=== PATIENT | female | born 1990 | race Caucasian/White ===

== ENCOUNTER 2020-04-25 11:42 | Outpatient (CLI) | payer BC ==
[2020-04-25 12:37] LABS: Basophils % (A) 1 %; Eosinophils # (A) 0.2 k/uL (0-0.7); Eosinophils % (A) 2 %; HCT 36.6 % (34.0-46.0); HGB 12.6 gm/dL (11.4-16.0); Lymphocytes # (A) 1.2 k/uL (1.0-4.8); Lymphocytes % (A) 13 %; MCH 30.1 pg (25.0-35.0); MCHC 34.6 g/dL (31.0-37.0); MCV 86.9 fL (80.0-100.0); Mean Platelet Volume 9.6; Monocytes # (A) 0.7 k/uL (0-1.0); Monocytes % (A) 8 %; Neutrophils # (A) 7.2 k/uL (1.3-7.7); Neutrophils % (A) 76 %; Platelet Count 157 k/uL (150-450); RBC 4.21 m/uL (3.80-5.40); RDW 13.9 % (11.5-15.5); WBC 9.4 k/uL (3.8-10.6)
[2020-04-25 12:45] LABS: ALT 19 U/L (4-34); AST 32 U/L (14-36); African American GFR (CKD) >90 (>60 ml/min/1.73 sqM); Blood Urea Nitrogen 3 mg/dL (7-17); LDH 456 U/L (313-618); Non-African American GFR(CKD) >90 (>60 ml/min/1.73 sqM)
[2020-04-25 12:46] LABS: Creatinine,Urine Random 23.9 mg/dL; Protein/Creatinine Ratio,Urine 0.628
[2020-04-25 12:48] LABS: Appearance,Urine Clear (Clear); Bacteria,Urine Moderate /hpf; Bilirubin,Urine Negative (Negative); Blood,Urine Negative (Negative); Color,Urine Light Yellow; Glucose,Urine (UA) Negative (Negative); Ketones,Urine Negative (Negative); Leukocyte Esterase,Urine Moderate (Negative); Nitrite,Urine Negative (Negative); Protein,Urine Negative (Negative); Specific Gravity,Urine 1.005 (1.001-1.035); Squamous Epithelial Cell,Urine 6 /hpf (0-4); Urobilinogen,Urine <2.0 mg/dL (<2.0); WBC,Urine 4 /hpf (0-5)
--- NOTE | 2020-04-26 06:30 | P.MSEPDOC ---
Presenting Problems - Arrival Data Date of Arrival on Unit: 04/25/20 Time of Arrival on Unit: 11:42 Mode of Transport: Ambulatory - Complaint OB-Reason for Admission/Chief Complaint: PIH Comment: pt sent over from the office for preeclampsia workup by Dr. Traylor Medical History - Information : 2 Para: 1 Term: 1 : 0 Abortions: Spontaneous or Elective: 0 Number of Living Children: 1 - Gestational Age Gestational Age by UTE (wks/days): 36 Weeks and 2 Days Review of Systems - Review of Systems Constitutional: No problems Breast: No problems ENT: No problems Cardiovascular: No problems Respiratory: No problems Gastrointestinal: No problems Genitourinary: No problems Musculoskeletal: No problems Neurological: No problems Skin: No problems Physician Notification (Pre) - Physician Notified Physician Notified Date: 04/25/20 New Order Received: Yes - Notification Comment Comment: Dr. Traylor notified of results of labs, orders to discharge pt home and have her do a 24 hour urine, and drop off container at outpatient lab Disposition - Disposition OB Disposition: Triage, Discharge to home, Written follow up instructions reviewed Discharge Date: 04/25/20 Discharge Time: 13:35 I agree with the RN Medical Screening Exam: Yes Case reviewed; plan agreed upon as documented in EMR&OBIX.: Yes Diagnosis: GESTATIONAL HTN W/O SIGNIFICANT PROTEINURIA, THIRD TRIMESTER (Patient was sent over from the office for 1 isolated elevated diastolic blood pressure that could not be reproduced. Patient's blood pressures here all were normal. Preeclampsia labs were normal. She did have an elevated protein to creatinine ratio therefore she was sent home for a 24-hour urine. Patient was given strict instructions return should any signs or symptoms of preeclampsia. She also follow-up short-term with me on for repeat blood pressure check and nonstress test. This time there is no evidence of maternal compromise or indications for delivery.)
== END 2020-04-25 13:35 | disposition home or self-care (01) ==
LOC: FBPOP 11:42
PROVIDERS: ATTEND Obstetrics & Gynecology
DX: O13.3 Gestational [pregnancy-induced] hypertension without significant proteinuria, third trimester (principal); Z3A.36 36 weeks gestation of pregnancy
CPT/HCPCS: 59025; 81001; 82565; 82570; 83615; 84156; 84450; 84460; 84520; 84550; 85025

== ENCOUNTER 2020-05-13 11:05 | Inpatient (IN) | payer BC ==
[2020-05-13 12:11] LABS: Basophils % (A) 0 %; Eosinophils # (A) 0.1 k/uL (0-0.7); Eosinophils % (A) 1 %; HCT 39.6 % (34.0-46.0); HGB 13.7 gm/dL (11.4-16.0); Lymphocytes # (A) 1.3 k/uL (1.0-4.8); Lymphocytes % (A) 13 %; MCH 30.4 pg (25.0-35.0); MCHC 34.7 g/dL (31.0-37.0); MCV 87.8 fL (80.0-100.0); Mean Platelet Volume 9.9; Monocytes # (A) 0.7 k/uL (0-1.0); Monocytes % (A) 7 %; Neutrophils # (A) 7.9 k/uL (1.3-7.7); Neutrophils % (A) 77 %; Platelet Count 158 k/uL (150-450); RBC 4.51 m/uL (3.80-5.40); WBC 10.2 k/uL (3.8-10.6)
[2020-05-13 12:16] LABS: Appearance,Urine Cloudy (Clear); Bacteria,Urine Many /hpf; Bilirubin,Urine Negative (Negative); Blood,Urine Negative (Negative); Color,Urine Light Yellow; Glucose,Urine (UA) Negative (Negative); Ketones,Urine Negative (Negative); Leukocyte Esterase,Urine Large (Negative); Nitrite,Urine Negative (Negative); Protein,Urine Negative (Negative); RBC,Urine 1 /hpf (0-5); Specific Gravity,Urine 1.004 (1.001-1.035); Squamous Epithelial Cell,Urine 9 /hpf (0-4); Urobilinogen,Urine <2.0 mg/dL (<2.0); WBC,Urine 40 /hpf (0-5)
[2020-05-13 12:21] LABS: ALT 19 U/L (4-34); AST 46 U/L (14-36); African American GFR (CKD) >90 (>60 ml/min/1.73 sqM); Blood Urea Nitrogen 7 mg/dL (7-17); LDH 642 U/L (313-618); Non-African American GFR(CKD) >90 (>60 ml/min/1.73 sqM); Uric Acid 4.2 mg/dL (3.7-7.4)
[2020-05-13 12:32] LABS: Creatinine,Urine Random 19.4 mg/dL; Protein/Creatinine Ratio,Urine 0.773
[2020-05-13] MEDS: LACTATED RINGERS 1,000 ML IV SCH ×2 (12:45→15:30)
[2020-05-13] MEDS ORDERED: LIDOCAINE 0.5% (PF) 5 MG/ML (50 ML SDV) SQ PRN (12:46)
[2020-05-13] MEDS ORDERED: CARBOPROST TROMETHAMINE 250 MCG/ML 1 ML AMP IM PRN (12:46)
[2020-05-13] MEDS ORDERED: TERBUTALINE 1 MG/ML VIAL SQ PRN (12:46)
[2020-05-13] MEDS ORDERED: OXYTOCIN 10 UNIT/ML 1 ML VIAL IM PRN (12:46)
[2020-05-13] MEDS ORDERED: METHYLERGONOVINE 0.2 MG/ML 1 ML AMP IM PRN (12:46)
[2020-05-13] MEDS ORDERED: OXYTOCIN 30 UNITS/500 ML NS 30 UNIT in SALINE 1 500ML.BAG IV SCH ×2 (13:00→19:07)
--- NOTE | 2020-05-13 13:12 | P.HPOB ---
History of Present Illness H&P Date: 05/13/20 Chief Complaint: Elevated blood pressure This patient is a pleasant 29-year-old 2 para 1 female estimated date of confinement 05/21/2020 estimated gestational age 38-6/7 weeks who presented to my office this morning for an OB visit and was found have an elevated blood pressure 136/100. Patient had a similar episode on April 25 however evaluation that time did not show a persistent elevation and lab work and 24-hour urine was normal. Patient's been seen twice a week since that time and blood pressures have remained normal. Patient has had persistent edema since approximately 35 weeks. Patient now was sent to labor and delivery for evaluation has had persistent blood pressure elevations greater than 140/90 and laboratory evaluation shows elevated AST. Platelets are normal. Patient denies headache but does have persistent lower extremity swelling. Plan initially was to proceed with induction Saturday but will now proceed with delivery because it is evident she's developed preeclampsia. care otherwise is been uncomplicated. Review of Systems Genitourinary: Reports Menstruation: Reports amenorrhea Past Medical History Additional Past Medical History / Comment(s): hx of gest diabetes with 1st History of Any Multi-Drug Resistant Organisms: None Reported Past Surgical History: Adenoidectomy, Tonsillectomy Past Anesthesia/Blood Transfusion Reactions: No Reported Reaction Past Psychological History: No Psychological Hx Reported Smoking Status: Never smoker Past Alcohol Use History: None Reported Past Drug Use History: None Reported - Past Family History Father Family Medical History: Cancer Additional Family Medical History / Comment(s): lung cancer, maternal grandfather had diabetes and HTN, from [place] Medications and Allergies Home Medications Medication Instructions Recorded Confirmed Type Pnv No.95/Ferrous Fum/Folic AC 1 tab PO DAILY 04/25/20 05/13/20 History [ Multivitamin Tablet] Allergies Allergy/AdvReac Type Severity Reaction Status Date / Time amoxicillin Allergy Rash/Hives Verified 05/13/20 11:17 Exam Vital Signs Temp Pulse Resp BP Pulse Ox 05/13/20 12:21 97.4 F L 82 18 141/95 100 05/13/20 11:39 97.4 F L 82 18 141/95 100 Intake and Output 05/12/20 05/13/20 05/13/20 22:59 06:59 14:59 Other: Weight 77.111 kg - OBG Physical Exam Abdomen: bowel sounds normal, no diffuse tenderness, no bruit present, no guarding noted, no hepatomegaly, no splenomegaly, no mass Vulva: both: normal Cervix: no lesion (Cervix is 2-350% effaced -2 station), no discharge Uterus: enlarged (Fundal height is 40 cm) Results blood work shows she is A-, rubella nonimmune, RPR nonreactive, hepatit is B negative, HIV is nonreactive, group B strep was positive, Glucola was 117, RhoGAM was given on March 01. Ultrasound done at 35 weeks showed the baby to be at the 67th percentile. Result Diagrams: 05/13/20 11:30 05/13/20 11:30 Abnormal Lab Results - Last 24 Hours (Table) 05/13/20 05/13/20 05/13/20 Range/Units 11:30 11:30 11:30 Neutrophils # 7.9 H (1.3-7.7) k/uL Creatinine 0.46 L (0.52-1.04) mg/dL AST 46 H (14-36) U/L Lactate Dehydrogenase 642 H (313-618) U/L Urine Appearance Cloudy H (Clear) Ur Leukocyte Esterase Large H (Negative) Urine WBC 40 H (0-5) /hpf Ur Squamous Epith Cells 9 H (0-4) /hpf Urine Bacteria Many H (None) /hpf Assessment and Plan Assessment: This is a pleasant 29-year-old 2 para 1 female 38-6/7 weeks gestation with elevated blood pressures and laboratory evaluation consistent with p reeclampsia. I recommended patient proceed with induction of labor and delivery at this time. Plan is antibiotic prophylaxis due to positive group B strep and Pitocin induction of labor. If blood pressures warrant then we will treat with IV labetalol. (1) 38 weeks gestation of Current Visit: Yes Status: Acute Code(s): Z3A.38 - 38 WEEKS GESTATION OF SNOMED Code(s): 30730482 (2) Preeclampsia Current Visit: Yes Status: Acute Code(s): O14.90 - UNSPECIFIED PRE-E CLAMPSIA, UNSPECIFIED TRIMESTER SNOMED Code(s): 657243563 (3) Rh negative status during Current Visit: Yes Status: Acute Code(s): O26.899 - OTH RELATED CONDITIONS, UNSPECIFIED TRIMESTER; Z67.91 - UNSPECIFIED BLOOD TYPE, RH NEGATIVE SNOMED Code(s): 629038565
[2020-05-13 15:04] LABS: INR 0.9 (<1.2); Partial Thromboplastin Time 22.7 sec (22.0-30.0); Prothrombin Time 9.4 sec (9.0-12.0)
[2020-05-13] MEDS ORDERED: SODIUM CHLORIDE 0.9% 100 ML BAG ONE (15:13)
[2020-05-13] MEDS ORDERED: fentaNYL (PF) 50 MCG/ML 5 ML AMP ONE (15:13)
[2020-05-13] MEDS ORDERED: ROPIVACAINE 5MG/ML 20ML VIAL ONE (15:13)
--- NOTE | 2020-05-13 18:44 | P.PROBDLV ---
Vaginal Delivery Note - . Vaginal Delivery Note: The patient progressed to complete dilation after artificial rupture membranes with clear fluid noted and oxytocin induction of labor. She did receive antibiotic prophylaxis be streptococcus. His reaching complete, she began pushing. She also did receive an epidural during labor. 's head came to a crown. 's heart tones were dipping at this point and the decision was made to cut an episiotomy to facilitate delivery faster. The perineum was anesthetized with 1% lidocaine and then a small episiotomy was cut. With one further push, the 's head delivered across the perineum. With one remaining push and the mother's legs in a flexed position, the anterior shoulder did deliver. With one remaining push, the remainder the infant did deliver reducing nuchal cord times one around the body with delivery. Infant was placed on mother's abdomen. Cord was clamped and cut and was taken to warmer for evaluation. A viable male is noted with scores of 9 at 1 minute and 9 at 5 minutes. weight is pending at this time. Placenta delivered shortly thereafter, intact, with a three-vessel cord. Uterus contracted well after oxytocin was given and uterine massage was carried out. Inspection of the perineum revealed a second-degree perineal laceration. This area was anesthetized with 1% lidocaine and sutured with 3-0 and 2-0 Vicryl suture in the usual multilayer fashion. Estimated blood loss is approximately 200 mL's. Mother and are in stable condition.
[2020-05-13] MEDS ORDERED: MEASLES-MUMPS-RUBELLA VACC/PF 12,500 UNIT/0.5 ML VIAL SQ ONE (19:07)
[2020-05-13] MEDS ORDERED: BENZOCAINE/MENTHOL SPRAY 1 GM/SPRAY AEROSOL TOPICAL PRN (19:07)
[2020-05-13] MEDS ORDERED: SIMETHICONE 80 MG CHEWABLE PO PRN (19:07)
[2020-05-13] MEDS ORDERED: diphenhydrAMINE 50 MG/ML 1 ML VIAL IVP PRN (19:07)
[2020-05-13] MEDS ORDERED: LANOLIN CREAM 5 GM TUBE TOPICAL PRN (19:07)
[2020-05-13] MEDS ORDERED: Rhogam IMMUNE GLOBULIN 1,500 UNIT/1 ML IM ONE (19:07)
[2020-05-13] MEDS ORDERED: diphenhydrAMINE 25 MG CAP PO PRN (19:07)
[2020-05-13] MEDS ORDERED: HYDROCORTISONE 2.5% RECTAL CREAM 30 GM TUBE RECTAL PRN (19:07)
[2020-05-13] MEDS ORDERED: ZOLPIDEM 5 MG TAB PO PRN (19:07)
[2020-05-13] MEDS ORDERED: bisacodyL 10 MG SUPP RECTAL PRN (19:07)
[2020-05-13] MEDS: SENNOSIDES-DOCUSATE SODIUM 1 EACH TAB PO SCH (19:19)
[2020-05-13] MEDS: IBUPROFEN 600 MG TAB PO PRN (21:02)
[2020-05-14] MEDS: IBUPROFEN 600 MG TAB PO PRN ×3 (03:14→20:57)
[2020-05-14 06:27] LABS: Basophils % (A) 0 %; Eosinophils # (A) 0.1 k/uL (0-0.7); Eosinophils % (A) 1 %; HCT 35.1 % (34.0-46.0); HGB 11.5 gm/dL (11.4-16.0); Lymphocytes # (A) 1.6 k/uL (1.0-4.8); Lymphocytes % (A) 12 %; MCH 29.2 pg (25.0-35.0); MCHC 32.9 g/dL (31.0-37.0); MCV 88.6 fL (80.0-100.0); Monocytes # (A) 1.1 k/uL (0-1.0); Monocytes % (A) 9 %; Neutrophils # (A) 10.1 k/uL (1.3-7.7); Neutrophils % (A) 77 %; Platelet Count 159 k/uL (150-450); RBC 3.96 m/uL (3.80-5.40); RDW 14.4 % (11.5-15.5)
[2020-05-14 06:37] LABS: Albumin 2.6 g/dL (3.5-5.0); Bilirubin,Unconjugated 1.8 mg/dL (0.0-1.1); Total Bilirubin 1.8 mg/dL (0.2-1.3)
[2020-05-14] MEDS: SENNOSIDES-DOCUSATE SODIUM 1 EACH TAB PO SCH ×2 (07:51→20:57)
[2020-05-14] MEDS: ACETAMINOPHEN TAB 325 MG TAB PO PRN ×2 (07:52→13:49)
--- NOTE | 2020-05-14 13:10 | P.DS ---
Providers Date of admission: 05/13/20 12:20 Expected date of discharge: 05/14/20 Attending physician: Desean Traylor Primary care physician: Stated None Hospital Course: This is a 29-year-old female 2 para 1 at 38-6/7 weeks who was admitted for elevated blood pressures and found to have preeclampsia. She underwent oxytocin induction of labor and delivered vaginally a viable male infant on 05/13/2020 with scores of 9 at 1 minute and 9 at 5 minutes and infant weight of 7 lbs. 9 oz. Her course has been essentially uncomplicated. Lochia is decreasing. Her pain is fairly well controlled as long as she takes her medication. She did have 1 elevated blood pressure this morning when she was in pain but it has been normal since. She is working on breast-feeding. Baby is still having some trouble feeding. She would like to go home as long as baby is doing okay. Vital signs are stable other than the 1 elevated blood pressure. Abdomen is soft with fundus firm and nontender. Extremities show negative Homans. Impression is status post vaginal delivery day #1, preeclampsia-labs stable this morning. Plan is to discharge home later today as long as baby is feeding okay and her blood pressures stay normalized. If she does go home later today, she is advised to follow up in the office with Dr. Traylor in 1 week for a blood pressure check. She will be given a prescription for ibuprofen. She will also receive a breast pump order. She is advised to call the office if she has any further questions or concerns prior to her post and blood pressure check appointment. Patient Condition at Discharge: Stable Plan - Discharge Summary New Discharge Prescriptions: New Ibuprofen [Motrin] 600 mg PO Q6H PRN #60 tab PRN Reason: Pain Continue Pnv No.95/Ferrous Fum/Folic AC [ Multivitamin Tablet] 1 tab PO DAILY Discharge Medication List Pnv No.95/Ferrous Fum/Folic AC [ Multivitamin Tablet] 1 tab PO DAILY 04/25/20 [History] Ibuprofen [Motrin] 600 mg PO Q6H PRN #60 tab 05/14/20 [Rx] Follow up Appointment(s)/Referral(s): Desean Traylor MD [STAFF PHYSICIAN] - 1 Week (Schedule visit for blood pressure check in the office.) Activity/Diet/Wound Care/Special Instructions: Instructions 1. Do not begin any exercise program for 3 weeks. 2. Do not resume sexual relations for 3 weeks or longer if uncomfortable. 3. You may take tub baths or showers at any time. 4. You may use tampons if desired after 3 weeks. 5. Keep the area of episiotomy (stitches) clean and dry. 6. If you are not nursing, wear a good fitting, supportive bra during the day and limit fluid intake for at least 1 week to prevent breast engorgement. 7. Call the office, [phone], within the next week to make appointment for your 6 week checkup if it has not already been made. 8. Report any of the following occurrences to the doctor promptly: a. Heavy, excessive bleeding b. Chills, fever c. Burning or frequency of urination d. Pain or redness and breasts if nursing e. Increasing pain or swelling in episiotomy (stitches). In addition to the above instructions, the following additional should be followed: 1. No heavy lifting or straining (exercising) until after 6 week checkup. 2. Keep abdominal incision clean and dry: You may wear a dressing if more comfortable. 3. Make office appointment for 10 days after going home or as instructed by her doctor. Discharge Disposition: HOME SELF-CARE
[2020-05-15] MEDS: ACETAMINOPHEN TAB 325 MG TAB PO PRN (00:45)
[2020-05-15] MEDS: SENNOSIDES-DOCUSATE SODIUM 1 EACH TAB PO SCH (08:19)
[2020-05-15] MEDS: IBUPROFEN 600 MG TAB PO PRN (08:19)
[2020-05-15 09:08] VITALS: BP 144/85; PULSE 70; RESP 18; TEMP 98.4
== END 2020-05-15 12:45 | disposition home or self-care (01) | DRG 806 ==
LOC: FBPOP 11:05 → 4FBP 12:20
PROVIDERS: ADMIT Obstetrics & Gynecology; ATTEND Obstetrics & Gynecology
PROC: 10E0XZZ Delivery of Products of Conception, External Approach (ICD-10-PCS; principal; 2020-05-13)
PROC: 0W8NXZZ Division of Female Perineum, External Approach (ICD-10-PCS; principal; 2020-05-13)
PROC: 3E0R3BZ Introduction of Anesthetic Agent into Spinal Canal, Percutaneous Approach (ICD-10-PCS; principal; 2020-05-13)
PROC: 00HU33Z Insertion of Infusion Device into Spinal Canal, Percutaneous Approach (ICD-10-PCS; principal; 2020-05-13)
PROC: 10907ZC Drainage of Amniotic Fluid, Therapeutic from Products of Conception, Via Natural or Artificial Opening (ICD-10-PCS; principal; 2020-05-13)
PROC: 0KQM0ZZ Repair Perineum Muscle, Open Approach (ICD-10-PCS; principal; 2020-05-13)
PROC: 3E0234Z Introduction of Serum, Toxoid and Vaccine into Muscle, Percutaneous Approach (ICD-10-PCS; 2020-05-13)
DX: O14.94 Unspecified pre-eclampsia, complicating childbirth (principal); O98.82 Other maternal infectious and parasitic diseases complicating childbirth; Z37.0 Single live birth; B95.1 Streptococcus, group B, as the cause of diseases classified elsewhere; O26.893 Other specified pregnancy related conditions, third trimester; Z67.11 Type A blood, Rh negative; O69.81X0 Labor and delivery complicated by cord around neck, without compression, not applicable or unspecified; O70.1 Second degree perineal laceration during delivery; Z3A.38 38 weeks gestation of pregnancy; Z79.899 Other long term (current) drug therapy; Z86.32 Personal history of gestational diabetes; Z90.89 Acquired absence of other organs; Z98.890 Other specified postprocedural states; Z88.0 Allergy status to penicillin; Z80.1 Family history of malignant neoplasm of trachea, bronchus and lung; Z83.3 Family history of diabetes mellitus; Z82.49 Family history of ischemic heart disease and other diseases of the circulatory system
CPT/HCPCS: 59025; 80076; 81001; 82565; 82570; 83615; 84156; 84450; 84460; 84520; 84550; 85025; 85461; 85610; 85730; 86850; 86900; 86901; 90707